=== PATIENT | female | born 1970 | race Caucasian/White ===

== ENCOUNTER 2017-02-25 18:23 | Emergency (ER) | payer OTHER ==
[2017-02-25 18:35] VITALS: BP 125/81
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
== END 2017-02-25 20:14 | disposition home or self-care (01) ==
LOC: ER 18:23
DX: S92.919A Unspecified fracture of unspecified toe(s), initial encounter for closed fracture (principal); M79.675 Pain in left toe(s); W17.89XA Other fall from one level to another, initial encounter; Y93.19 Activity, other involving water and watercraft; Y92.832 Beach as the place of occurrence of the external cause; J45.909 Unspecified asthma, uncomplicated
CPT/HCPCS: 99283